=== PATIENT | female | born 1955 | race Caucasian/White ===

== ENCOUNTER → 2024-10-05 | Outpatient (CLI) | payer BC, SELFPAY ==
--- NOTE | 2024-10-05 09:45 | XR_ITS ---
Examination: Abdomen sonogram, Limited Date and time of exam: October 05, 2024 1033 hours INDICATIONS: Elevated liver enzymes on laboratory examination performed 2 weeks ago Technique: Real-time plasencia scale transabdominal sonographic images of the upper abdomen obtained. Findings: Normal gallbladder Normal common bile duct 0.2 cm Pancreatic head 1.8 cm Liver 12.7 cm smooth contour no focal liver lesions Normal hepatopedal portal venous flow Patent IVC IMPRESSION: Normal study
== END | disposition home or self-care (01) ==
PROVIDERS: PCP Internal Medicine; Referring Provider Internal Medicine; Visit Provider Internal Medicine
DX: R94.5 Abnormal results of liver function studies (principal)
CPT/HCPCS: 76705

== ENCOUNTER → 2025-10-15 | Outpatient (CLI) | payer BC, SELFPAY ==
--- NOTE | 2025-10-15 | XR_ITS ---
Examination: Breast ultrasound complete, bilateral Date and time of exam: October 15, 2025, 1213 hours, comparison October 22, 2023 INDICATION: Mammogram October 11, 2023 4 mm circumscribed mass lower left breast MLO view, family history of breast cancer Technique: Real-time grayscale ultrasonographic imaging bilateral breasts, including all 4 quadrants as well as nipple retroareolar and axillary regions. Findings: Sonographic images right breast No cystic or solid mass Sonographic images left breast No cystic or solid mass IMPRESSION: BI-RADS Category 2: Benign findings
== END | disposition home or self-care (01) ==
PROVIDERS: PCP Internal Medicine; Referring Provider Internal Medicine; Visit Provider Internal Medicine
DX: R92.8 Other abnormal and inconclusive findings on diagnostic imaging of breast (principal); Z80.3 Family history of malignant neoplasm of breast
CPT/HCPCS: 76641